=== PATIENT | female | born 1960 | race Asian ===

== ENCOUNTER → 2022-06-12 11:11 | Outpatient (CLI) | payer OTHER, SELFPAY ==
[2022-06-12 12:48] LABS: COVID19 -Nasal RAPID Negative (Negative)
== END ==
PROVIDERS: Visit Provider Surgery
DX: Z01.812 Encounter for preprocedural laboratory examination (principal); Z20.822 Contact with and (suspected) exposure to COVID-19
CPT/HCPCS: 87635; C9803

== ENCOUNTER 2022-06-13 13:29 | Day surgery (SDC) | payer OTHER, SELFPAY ==
--- NOTE | 2022-06-13 | PATH_ITS ---
[facility] Accession Number: [id number] . 01 Material submitted: . gastrointestinal site - STOMACH BIOPSIES . 01 Diagnosis: Stomach, Biopsies: Gastric antral mucosa with mild chronic inflammation. Negative for Helicobacter organisms by immunohistochemistry. Negative for intestinal metaplasia. Negative for dysplasia or malignancy. MRV 06/18/2022 1706 Local . 01 Electronically signed: . Jaswinder Yu MD, PhD, Pathologist NPI- [id number] . 01 Gross description: . STOMACH BIOPSIES: Received in formalin are 2 fragment(s) of stubbs, soft tissue measuring 0.5 x 0.2 x 0.1 cm to 0.3 x 0.1 x 0.1 cm submitted entirely in 1 cassette(s) /CPE 06/14/2022 0725 Local . 01 Microscopic: . An immunohistochemical stain was performed to evaluate for Helicobacter organisms and is negative. The control stain showed appropriate reactivity. . * This test was developed and its performance characteristics determined by [facility]. It has not been cleared or approved by the U.S. Food and Drug Administration. The FDA has determined that such clearance or approval is not necessary. This test is used for clinical purposes. It should not be regarded as investigational or for research. . 01 Pathologist provided ICD-10: K29.70 . 01 CPT . 672398, W01156 Specimen Comment: A courtesy copy of this report has been sent to [phone] Performed at: 01 [facility] [address] [place] [address], [place], [place] [id number] MD Doroteo Hyman MD Phone: [phone]
[2022-06-13 14:11] VITALS: BP 149/88; PULSE 79; RESP 16; TEMP 36.2; O2SAT 100; BMI 26.5
--- NOTE | 2022-06-13 14:21 | PM.HP.1 ---
History of Present Illness History of Present Illness Chief complaint: EGD/Colonoscopy Narrative: Dysphagia with history of large hiatal hernia. Need for colorectal cancer screening Meds Home Medications and Allergies Home Medications Medication Instructions Recorded Confirmed Type acetaminophen 500 mg tablet ##0 07/08/16 History (Tylenol Extra Strength) Allergies Allergy/AdvReac Type Severity Reaction Status Date / Time No Known Allergies Allergy Uncoded 10/23/17 12:40 Exam Narrative Exam Narrative: Oropharynx free of lesions Chest clear to auscultation percussion Cardiac exam reveals no S3 or murmur Assessment & Plan Assessment & Plan narrative: Dysphagia and need for colorectal cancer screening. EGD and colonoscopy to be performed. Risks benefits alternatives have been explained. Time Spent With Patient Critical Care time: I spent a total of [] minutes of critical care time on this patient's care today; this time is exclusive of procedural time.
--- NOTE | 2022-06-13 14:22 | P.OP.EGD&C_ITS ---
Operative Date/Time/Diagnoses Date of procedure: 06/13/22 Pre-op diagnosis: See indication and findings Procedure & Clinicians Study performed: EGD and colonoscopy Indications: Dysphagia and need for colorectal cancer screening Surgeon: John Whiteside Procedure Notes Procedure in detail: After informed consent was obtained the patient was placed in left lateral decubitus position. The video upper scope was placed into the oropharynx and with the patient's help swallowed into the esophagus. The esophagus stomach and duodenum were carefully examined. On withdrawal, retroflexed view the GE junction was performed. The scope was removed. The patient tolerated procedure well. The colonoscope was then substituted the patient turned. The scope was introduced to the rectum and easily passed cecum. Preparation was good. On slow withdrawal mucosa was carefully examined. The scope was removed. The patient tolerated procedure well. Blood loss none Complications none Sedation mac Findings EGD 1. Squamocolumnar junction normal 36 cm. Retroflexed view shows that there is a noninflammatory tightness in this area possibly representing a Schatzki's ring. On removal of the scope a guidewire was left behind and a 51 K[address] Savary dilator was passed without difficulty. 2. Large unilateral paraesophageal hernia. The neck is only 2-3 cm but the hernia itself is much larger possibly 8 cm. No Boni lesions were seen 3. Intense moderately severe nonerosive erythematous stripes in the antrum. I hematin flexor seen. Biopsies taken to rule out Helicobacter 4. Normal pylorus duodenal bulb and sweep Colonoscopy 1. Scattered diverticulosis throughout the entire colon including the right col on 2. Otherwise negative colonoscopy to cecum We will merely await biopsies on her stomach but will also need follow-up in a month to see if she had any positive effect of dilation at all. Will also need to discuss medication use and possible surgical intervention. She will need follow-up colonoscopy in 10 years.
[2022-06-13] MEDS: SODIUM CHLORIDE 0.9% 1,000 ML 84 ML IV (14:25)
[2022-06-13 15:16] VITALS: BP 117/67; PULSE 73; RESP 22; TEMP 36.7; O2SAT 96
[2022-06-13 15:21] VITALS: BP 127/74; PULSE 75; RESP 22; O2SAT 97
[2022-06-13 15:26] VITALS: BP 136/77; PULSE 72; RESP 21; O2SAT 97
[2022-06-13 15:31] VITALS: BP 124/85; PULSE 86; RESP 20; O2SAT 98
== END 2022-06-13 15:53 | disposition home or self-care (01) ==
PROVIDERS: PCP Family Medicine; Referring Provider Internal Medicine Gastroenterology; Visit Provider Internal Medicine Gastroenterology
PROC: 0DJ08ZZ Inspection of Upper Intestinal Tract, Via Natural or Artificial Opening Endoscopic (ICD-10-PCS; CPT 43235; principal; 2022-06-13 15:00)
PROC: 0DJD8ZZ Inspection of Lower Intestinal Tract, Via Natural or Artificial Opening Endoscopic (ICD-10-PCS; CPT 45378; 2022-06-13 15:00)
DX: R13.10 Dysphagia, unspecified (principal); Z12.11 Encounter for screening for malignant neoplasm of colon; K22.2 Esophageal obstruction; K44.9 Diaphragmatic hernia without obstruction or gangrene; K57.30 Diverticulosis of large intestine without perforation or abscess without bleeding; K29.50 Unspecified chronic gastritis without bleeding
CPT/HCPCS: 43248; 43239; 45378; J2704; J3010

== ENCOUNTER → 2022-08-24 13:28 | Outpatient (CLI) | payer OTHER, SELFPAY ==
--- NOTE | 2022-08-24 | DI.RAD.S_ITS ---
PROCEDURE: FL BARIUM SWALLOW INDICATIONS: Dysphagia, unspecified COMPARISON: [facility], MR, MR HANDS WITH/WITHOUT CONTRAST BILATERAL FOR RA, 03/13/2022, 14:40. FINDINGS: Function: There is normal esophageal peristalsis. No elicited gastroesophageal reflux. There is normal transit of a calibrated barium tablet through the esophagus into the stomach. Morphology: Air-contrast images demonstrate normal mucosal morphology. Single contrast views show no esophageal strictures, extrinsic mass effects, or diverticula. There is asymmetric contrast pooling in the right pisiform sinus. A large paraesophageal hiatal hernia is present. Limited images of the stomach demonstrate normal appearance. IMPRESSION: 1. Large paraesophageal hiatal hernia. 2. Asymmetric pooling of oral contrast in the right piriform sinus. The finding is of uncertain etiology. Recommend ENT consultation and direct visualization. Dictated by: Selma Moran M.D. on 08/24/2022 at 15:32 Approved by: Selma Moran M.D. on 08/24/2022 at 15:39
== END ==
PROVIDERS: PCP Family Medicine; Referring Provider Internal Medicine Gastroenterology; Visit Provider Internal Medicine Gastroenterology
DX: R13.10 Dysphagia, unspecified (principal); K44.9 Diaphragmatic hernia without obstruction or gangrene
CPT/HCPCS: 74220

== ENCOUNTER 2023-04-09 21:08 | Emergency (ER) | payer OTHER, SELFPAY ==
[2023-04-09 21:16] VITALS: BP 179/84; PULSE 78; RESP 18; TEMP 36.3; O2SAT 97; BMI 23.0
--- NOTE | 2023-04-09 21:26 | ED.GENADULT ---
HPI - General Adult General Chief complaint: Abdominal Pain Stated complaint: thinks kidney stone Time Seen by Provider: 04/09/23 21:09 Source: patient Mode of arrival: Ambulatory History of Present Illness HPI narrative: 63-year-old female daily smoker without significant chronic medical history presents with her brother and a chief complaint of sudden onset right flank pain with radiation into her right groin over the course of the day. She denies any trauma or injury. She states there is no obvious provocation, palliation. She does have some urinary complaints such as frequency and urgency but denies any dysuria or hematuria. She is had no fever or chills. She is had nausea and some dry heaves but no actual vomiting. She denies any change in her bowel habits. She states she is concerned about the potential of a kidney stone though she has never had 1. Related Data Home Medications Medication Instructions Recorded Confirmed acetaminophen 500 mg tablet ##0 07/08/16 (Tylenol Extra Strength) meloxicam 06/13/22 Previous Rx's Medication Instructions Recorded hydrocodone 5 mg-acetaminophen 325 1 tab PO Q4-6H PRN pain #10 tabs 04/09/23 mg tablet ketorolac 10 mg tablet 10 mg PO Q6H PRN pain #14 tabs 04/09/23 ondansetron 4 mg disintegrating 4 mg PO TID-QID PRN nausea and 04/09/23 tablet vomiting #10 tabs Allergies Allergy/AdvReac Type Severity Reaction Status Date / Time No Known Allergies Allergy Uncoded 06/13/22 14:22 Review of Systems Review of Systems Narrative: GENERAL: See HPI HEENT: Denies sinus pain, ear pain, sore throat, difficulty swallowing, dizziness. RESPIRATORY: Denies dyspnea, cough, wheezing, hemoptysis, sputum. CARDIOVASCULAR: Denies chest pain, palpitations, orthopnea, edema, GASTROINTESTINAL: See HPI : See HPI MUSCULOSKELETAL: denies weakness, joint pain, or bony pain SKIN: Denies rash, skin lesions, or other NEUROLOGIC: Denies weakness, headache, numbness, change in speech, confusion, seizures, incoordination. PSYCHIATRIC: No concerning psychosocial issues. 12 point review of systems is negative except for those stated above Patient History Social History household members: spouse Smoking Status: Current every day smoker alcohol intake: never Smoking Status: Current every day smoker Substance Use Type: does not use Exam Narrative Exam Narrative: GENERAL: [63] year old patient appears stated age. Well-developed patient, in mild distress. Appears uncomfortable, rubbing her right flank HEAD: Atraumatic. Normocephalic. EYES: Pupils equal round and reactive. Extraocular motions intact. No scleral icterus. No injection or drainage. ENT: Nose without bleeding, purulent drainage. Throat without erythema, tonsillar hypertrophy or exudate. Airway patent. NECK: Trachea midline. Non tender CARDIOVASCULAR: Regular rate and rhythm without murmurs, gallops, or rubs. RESPIRATORY: Clear to auscultation. Breath sounds equal bilaterally. No wheezes, rales, or rhonchi. GASTROINTESTINAL: Abdomen soft, non-tender, nondistended. EXTREMITIES: No edema or joint tenderness. BACK: Nontender without deformity or crepitance. No flank tenderness. NEURO: AOx3. SKIN: No rash or erythema of visible areas Initial Vital Signs Initial Vital Signs: Vital Signs Temperature 97.4 F L 04/09/23 21:16 Pulse Rate 78 04/09/23 21:16 Respiratory Rate 18 04/09/23 21:16 Blood Pressure 179/84 H 04/09/23 21:16 Pulse Oximetry 97 04/09/23 21:16 Oxygen Delivery Method Room Air 04/09/23 21:16 Course Orders Ordered: ED Orders 04/09/23 21:20 Urine Microscopic Stat 04/09/23 21:27 CT kidney ureter bladder (KUB) Stat 04/09/23 21:35 Complete Blood Count AUTO DIFF Stat Comprehensive Metabolic Panel Stat Discontinued Medications Hydrocodone Bitart/Acetaminophen (Hydrocodone/Acet 5/325 Prepack) 1 bottle MISC SEEINSTR ONE Stop: 04/09/23 23:35 Sodium Chloride (Normal Saline 0.9%) 1,000 mls @ 1,000 mls/hr IV BOLUS ONE Stop: 04/09/23 22:26 Last Infusion: 04/09/23 23:00 Dose: 0 mls/hr Documented By: Admin: 04/09/23 21:46 Dose: 1,000 mls/hr Documented By: BENOIT Ketorolac Tromethamine (Ketorolac 30 Mg/Ml Vial) 15 mg IV NOW ONE Stop: 09/26/23 21:28 Last Admin: 04/09/23 21:46 Dose: 15 mg Documented By: BENOIT Ondansetron HCl (Ondansetron 4 Mg/2 Ml Inj) 4 mg IV NOW ONE Stop: 04/09/23 21:28 Last Admin: 04/09/23 23:33 Dose: Not Given Documented By: BENOIT Ondansetron HCl (Ondansetron 4 Mg Odt Prepack) 1 bottle MISC SEEINSTR ONE Stop: 04/09/23 23:35 Vital Signs Vital signs: Vital Signs - 8 hr 04/09/23 21:16 Temperature 97.4 F L Pulse Rate 78 Respiratory Rate 18 Blood Pressure 179/84 H Pulse Oximetry 97 Oxygen Delivery Method Room Air Medical Decision Making Lab Data 04/09/23 21:35 04/09/23 21:35 Labs: Lab Results 04/09/23 04/09/23 04/09/23 Range/Units 21:20 21:35 21:35 WBC 10.6 (4.5-11.0) X10^3/uL RBC 4.47 (4.0-5.2) X10^6/uL Hgb 12.1 (12.0-16.0) g/dL Hct 36.4 (36-46) % MCV 81.6 (80-100) fL MCH 27.0 (26-34) PG MCHC 33.1 (30-36) % RDW 18.1 H (11.6-14.8) % Plt Count 241 (150-400) X10^3/uL Neut % (Auto) 81.6 H (50-75) % Lymph % (Auto) 10.8 L (25-40) % Rooks % (Auto) 5.0 (3-14) % Eos % (Auto) 1.4 L (2-4) % Baso % (Auto) 1.2 (0-2) % Neut # (Auto) 8700 H (2771-8294) /uL Lymph # (Auto) 1100 (4419-9111) /uL Rooks # (Auto) 500 (0-900) /uL Eos # (Auto) 100 (0-450) /uL Baso # (Auto) 100 (0-100) /uL Sodium 141 (137-145) mmol/L Potassium 3.6 (3.4-5.1) mmol/L Chloride 107 (98-107) mmol/L Carbon Dioxide 25 (22-32) mmol/L BUN 13 (7-17) mg/dL Creatinine 0.78 (0.52-1.04) mg/dL Estimated GFR > 60 (>60) mL/min BUN/Creatinine Ratio 16.7 (6-22) Glucose 100 (80-110) mg/dL Calcium 8.9 (8.4-10.2) mg/dL Total Bilirubin 0.2 (0.2-1.3) mg/dL AST 23 (14-36) IU/L ALT 18 (<35) IU/L Alkaline Phosphatase 95 (38-126) U/L Total Protein 7.5 (6.3-8.2) g/dL Albumin 4.2 (3.5-5.0) g/dL Globulin 3.3 (1.7-4.1) g/dL Albumin/Globulin Ratio 1.3 (1.0-2.8) Urine RBC >100/hpf H (0-5/HPF) Urine WBC 0-1/hpf (0-5/HPF) Ur Squamous Epith Cells 1-5 /hpf (0-5/HPF) Urine Bacteria Occasional (0-1) (None) Ur Culture Indicated? Cult not indicated Urine Dip Bedside Urine Glucose Negative Bedside Urine Bilirubin - Negative Bedside Urine Ketone - Negative Urine Specific [place] 1.020 Bedside Urine Occult Blood +++ Bedside Urine pH 5.5 Bedside Urine Protein - Negative Bedside Urine Urobilinogen - Negative Bedside Urine Nitrite - Negative Bedside Urine Leukocytes - Negative Esterase Point of care testing: Urine Dip Bedside Urine Glucose Negative Bedside Urine Bilirubin - Negative Bedside Urine Ketone - Negative Urine Specific [place] 1.020 Bedside Urine Occult Blood +++ Bedside Urine pH 5.5 Bedside Urine Protein - Negative Bedside Urine Urobilinogen - Negative Bedside Urine Nitrite - Negative Bedside Urine Leukocytes - Negative Esterase [facility] Narrative Medical decision making narrative: CC: 63-year-old female with right flank pain Complicating co-morbidities: None known Data collected from: Patient Medical records reviewed: Prior notes reviewed in our EMR Differential considered, but not limited to: UTI versus pyelonephritis versus kidney stone versus bowel obstruction versus other Exam documented above, pertinent findings include: Heart rate regular, lungs clear, abdomen soft, no obvious CVA tenderness Lab Test results independently reviewed as above. Pertinent findings: Independently reviewed EKG as above Imaging studies independently reviewed: CT demonstrates stone at the right UVJ with [id number] hydro Treatments: fluids, toradol Re-evaluations: Pain well controlled Discussion: Patient with sudden onset right flank pain with radiation to her groin. No other urinary complaints, no signs of sepsis, reassuring labs without evidence of infection or renal involvement. Pain controlled, patient tolerating orals and appropriate for discharge. Disposition: see below, along with detailed discharge instructions that have been reviewed with patient as well as indications for ED re-evaluation and additional outpatient follow up Discharge Plan Departure Patient Disposition: Home Clinical Impression: Calculus of kidney Instructions: DI for Kidney Stones Activity Restrictions/Additional Instructions: *You have been diagnosed with [right-sided kidney stone] *What to do: *Please continue to take your regular medications as directed. [ x] New medication prescriptions sent to your pharmacy: [ [facility] in [place]] [ ] New medication written as a paper prescription [ ] No new medications given *Please follow up with your primary care provider in 2-3 days, call for an appointment. Let them know you were seen in the Emergency Department and that we ask that you be seen in follow up. We will electronically transmit a record of today's note if your PCP is in our system *If you do not have a primary care provider please contact the [facility] Resource line at [phone]. They will ask some questions about your medical history and help get you set up with a doctor in the community. *Return to Emergency Department if you should have any new, worsening or concerning symptoms, such as [fever greater than 101 F, shaking chills, worsening pain, persistent vomiting or other bothersome symptoms] Prescriptions: New hydrocodone-acetaminophen 5-325 mg tablet 1 tab PO Q4-6H PRN (Reason: pain) Qty: 10 0RF ketorolac 10 mg tablet 10 mg PO Q6H PRN (Reason: pain) Qty: 14 0RF ondansetron 4 mg tablet,disintegrating 4 mg PO TID-QID PRN (Reason: nausea and vomiting) Qty: 10 0RF No Action acetaminophen [Tylenol Extra Strength] 500 MG tablet Qty: 0 meloxicam Referrals: Pretty Bass MD [Primary Care Provider] - Stand Alone Forms: Patient Portal/API
--- NOTE | 2023-04-09 21:27 | DI.CT.S_ITS ---
PROCEDURE: CT KIDNEY URETER BLADDER (KUB) INDICATIONS: R flank pain TECHNIQUE: Axial sections were acquired from the lung bases to the pubic symphysis. Coronal and sagittal reformats were performed. For radiation dose reduction, the following was used: automated exposure control, adjustment of mA and/or kV according to patient size. COMPARISON: None. FINDINGS: Image quality: Excellent. Lung bases: There is minimal atelectasis. Heart: Heart is normal in size. There is a small hiatal hernia. URINARY: Right Kidney and Ureter: There is a punctate obstructing stone within the distal right ureter just proximal to the ureterovesicular junction with mild right hydronephrosis. There is associated mild perinephric and periureteral fat stranding. Left Kidney and Ureter: No stones or hydronephrosis. No hydroureter. Bladder: Normal wall thickness. No stones. ABDOMEN: Liver: Noncontrast evaluation of the liver demonstrates no discrete mass. Gallbladder: Within normal limits without calcified gallstones. Biliary ducts: No biliary ductal dilatation. Pancreas: Unremarkable. Spleen: Normal in size. Adrenal Glands: There is a left adrenal nodule measuring 1.6 cm with attenuation values compatible with a lipid rich adenoma. Stomach and Bowel: Stomach, small bowel loops, and colon are normal in caliber and wall thickness. The appendix is normal. Peritoneum: No abnormal intraperitoneal fluid. No free air. Ventral Wall: No hernia. Abdominal Nodes: No retroperitoneal or mesenteric adenopathy by size criteria. Vessels: Aorta and inferior vena cava are normal in size. PELVIS: Pelvic Organs: The uterus is surgically absent. Pelvic Nodes: No enlarged lymph nodes. Miscellaneous: No inguinal hernias identified. Bones: Visualized osseous structures demonstrate no suspicious focal lesions. IMPRESSION: 1. Punctate obstructing stone within the distal right ureter with mild right hydronephrosis. Dictated by: Doroteo Crane M.D. on 04/09/2023 at 22:52 Approved by: Doroteo Crane M.D. on 04/09/2023 at 22:55
[2023-04-09 21:46] LABS: Add Manual Diff / Slide Review NO; Basophils Absolute Auto 100 /uL (0-100); Basophils Percent Auto 1.2 % (0-2); Eosinophils Absolute Auto 100 /uL (0-450); Eosinophils Percent Auto 1.4 % (2-4); Hematocrit 36.4 % (36-46); Hemoglobin 12.1 g/dL (12.0-16.0); Lymphocytes Absolute Auto 1100 /uL (1100-4500); Lymphocytes Percent Auto 10.8 % (25-40); Mean Corpuscular HGB Conc 33.1 % (30-36); Mean Corpuscular Volume 81.6 fL (80-100); Monocytes Absolute Auto 500 /uL (0-900); Neutrophils Absolute Auto 8700 /uL (1500-7000); Neutrophils Percent Auto 81.6 % (50-75); Platelet Count 241 X10^3/uL (150-400); Red Blood Cell Count 4.47 X10^6/uL (4.0-5.2); Red Cell Distribution Width 18.1 % (11.6-14.8); White Blood Cell Count 10.6 X10^3/uL (4.5-11.0)
[2023-04-09] MEDS: KETOROLAC 30 MG/ML VIAL 15 MG IV (21:46)
[2023-04-09] MEDS: SODIUM CHLORIDE 0.9% 1,000 ML 1000 ML IV (21:46)
[2023-04-09 21:58] LABS: Alanine Aminotransferase 18 IU/L (<35); Albumin 4.2 g/dL (3.5-5.0); Albumin Globulin Ratio 1.3 (1.0-2.8); Alkaline Phosphatase 95 U/L (38-126); Aspartate Aminotransferase 23 IU/L (14-36); BUN Creatinine Ratio 16.7 (6-22); Bilirubin Total 0.2 mg/dL (0.2-1.3); Blood Urea Nitrogen 13 mg/dL (7-17); Calcium 8.9 mg/dL (8.4-10.2); Carbon Dioxide 25 mmol/L (22-32); Chloride 107 mmol/L (98-107); Estimated Glomerular Filt Rate > 60 mL/min (>60); Globulin 3.3 g/dL (1.7-4.1); Glucose 100 mg/dL (80-110); HEMOLYSIS < 15 (0-50); Potassium 3.6 mmol/L (3.4-5.1); Sodium 141 mmol/L (137-145); Total Protein 7.5 g/dL (6.3-8.2)
[2023-04-09 22:12] LABS: RBC Urine >100/HPF (0-5/HPF)
[2023-04-09 22:13] LABS: Bacteria Urine Occasional (0-1); Culture Indicated Urine Cult Not Indicated; Squamous Epithelial Cell Urine 1-5 /HPF (0-5/HPF); WBC Urine 0-1/HPF (0-5/HPF)
[2023-04-09] MEDS: HYDROCODONE/ACET 5/325 PREPACK 1 BOTTLE MISC (23:52)
[2023-04-09] MEDS: ONDANSETRON 4 MG ODT PREPACK 1 BOTTLE MISC (23:53)
[2023-04-10 00:05] VITALS: BP 156/73; PULSE 69; RESP 20; O2SAT 99
== END 2023-04-10 00:06 | disposition home or self-care (01) ==
PROVIDERS: Emergency Provider Emergency Medicine; PCP Family Medicine
DX: N20.0 Calculus of kidney (principal)
CPT/HCPCS: 74176; 80053; 81003; 81015; 85025; 96361; 96374; 99283; 99284; J1885

== ENCOUNTER 2023-04-10 07:07 | Emergency (ER) | payer OTHER, SELFPAY ==
[2023-04-10 07:10] VITALS: BP 131/71; PULSE 65; O2SAT 94
--- NOTE | 2023-04-10 07:10 | ED.ABDPAIN ---
HPI - Abdominal Pain General Chief Complaint: Back Pain/Injury Stated Complaint: right side pain Time Seen by Provider: 04/10/23 07:09 History of Present Illness HPI narrative: Patient brought in by ambulance from home for complains of right flank pain. Patient discharged here about 7 hours ago for diagnosis of right distal ureter stone. Pain worsened prior to arrival. Home Worden medication did not work. Patient was given 100 mcg of fentanyl by EMS. Feeling much better. Also received Zofran as well. NPO since last night. No prior history of kidney stone. Patient states feeling much better after EMS treatment of pain medication. Patient was sent home with Worden because no pharmacy was opened. Was not able to get any other medications filled. Related Data Home Medications Medication Instructions Recorded Confirmed acetaminophen 500 mg tablet ##0 07/08/16 (Tylenol Extra Strength) meloxicam 06/13/22 Previous Rx's Medication Instructions Recorded hydrocodone 5 mg-acetaminophen 325 1 tab PO Q4-6H PRN pain #10 tabs 04/09/23 mg tablet ketorolac 10 mg tablet 10 mg PO Q6H PRN pain #14 tabs 04/09/23 ondansetron 4 mg disintegrating 4 mg PO TID-QID PRN nausea and 04/09/23 tablet vomiting #10 tabs tamsulosin 0.4 mg capsule (Flomax) 0.4 mg PO DAILY #7 caps 04/10/23 Allergies Allergy/AdvReac Type Severity Reaction Status Date / Time No Known Allergies Allergy Uncoded 04/10/23 07:15 Patient History Social History household members: spouse Smoking Status: Current every day smoker alcohol intake: never Smoking Status: Current every day smoker Substance Use Type: does not use Exam Initial Vital Signs Initial Vital Signs: Vital Signs Pulse Rate 65 04/10/23 07:10 Blood Pressure 131/71 04/10/23 07:10 Pulse Oximetry 94 04/10/23 07:10 Course Orders Ordered: Discontinued Medications Ketorolac Tromethamine (Ketorolac 30 Mg/Ml Vial) 15 mg IV NOW ONE Stop: 04/10/23 08:35 Last Admin: 04/10/23 08:40 Dose: 15 mg Documented By: SIMONA Tamsulosin HCl (Tamsulosin 0.4 Mg Capsule) 0.4 mg PO NOW ONE Stop: 04/10/23 07:43 Last Admin: 04/10/23 08:05 Dose: 0.4 mg Documented By: SIMONA Vital Signs Vital signs: Vital Signs - 8 hr 04/10/23 07:12 04/10/23 07:10 04/10/23 07:10 Temperature 98.7 F Pulse Rate 64 65 Respiratory Rate 16 Blood Pressure 131/71 131/71 Pulse Oximetry 97 94 Oxygen Delivery Method Room Air 04/10/23 07:30 Temperature Pulse Rate 58 L Respiratory Rate Blood Pressure Pulse Oximetry 96 Oxygen Delivery Method MDM - Abdominal Pain Lab Data 04/10/23 07:16 04/10/23 07:16 Labs: Lab Results 04/10/23 Range/Units 07:16 WBC 9.0 (4.5-11.0) X10^3/uL RBC 4.22 (4.0-5.2) X10^6/uL Hgb 11.3 L (12.0-16.0) g/dL Hct 34.3 L (36-46) % MCV 81.3 (80-100) fL MCH 26.8 (26-34) PG MCHC 32.9 (30-36) % RDW 17.6 H (11.6-14.8) % Plt Count 209 (150-400) X10^3/uL Neut % (Auto) 85.6 H (50-75) % Lymph % (Auto) 8.0 L (25-40) % Vigo % (Auto) 5.1 (3-14) % Eos % (Auto) 0.9 L (2-4) % Baso % (Auto) 0.4 (0-2) % Neut # (Auto) 7700 H (9125-5331) /uL Lymph # (Auto) 700 L (1944-8618) /uL Vigo # (Auto) 500 (0-900) /uL Eos # (Auto) 100 (0-450) /uL Baso # (Auto) 0 (0-100) /uL Sodium 139 (137-145) mmol/L Potassium 3.7 (3.4-5.1) mmol/L Chloride 109 H (98-107) mmol/L Carbon Dioxide 23 (22-32) mmol/L BUN 13 (7-17) mg/dL Creatinine 0.82 (0.52-1.04) mg/dL Estimated GFR > 60 (>60) mL/min BUN/Creatinine Ratio 15.9 (6-22) Glucose 109 (80-110) mg/dL Calcium 8.8 (8.4-10.2) mg/dL Total Bilirubin 0.4 (0.2-1.3) mg/dL AST 22 (14-36) IU/L ALT 18 (<35) IU/L Alkaline Phosphatase 82 (38-126) U/L Total Protein 6.7 (6.3-8.2) g/dL Albumin 3.8 (3.5-5.0) g/dL Globulin 2.9 (1.7-4.1) g/dL Albumin/Globulin Ratio 1.3 (1.0-2.8) Imaging Data X-ray KUB: Radiologist's Impression: [address] [address] XRay Report Signed Patient: Vanessa Condon MR#: [id number] : 1960 Acct:[id number] Age/Sex: 63 / F Date of Service: 04/10/23 Loc: ED Accession Number: [id number] ?? Procedure: XR KUB Ordering Provider: Mando Dick MD PROCEDURE:? XR KUB ? INDICATIONS:? Right flank pain/kidney stone ? TECHNIQUE:? One view of the abdomen acquired.? ? COMPARISON:? [facility], CT, CT KIDNEY URETER BLADDER (KUB), 04/09/2023, 21:34. ? FINDINGS:? ? Surgical changes and devices:? None.? ? Bowel:? Bowel gas pattern is normal.? ? Soft tissues:? There is a tiny right pelvic calcification which may potentially represent the tiny obstructing right distal ureteral stone.? Visualized solid organ contours appear normal in size.? ? Bones:? No suspicious bony lesions.? ? IMPRESSION:? Question visualization of a tiny obstructing distal right ureteral stone on today's supine KUB. ? ? Dictated by: Lázaro Scanlon M.D. on 04/10/2023 at 8:22 ? ? Approved by: Lázaro Scanlon M.D. on 04/10/2023 at 8:23 ? MDM Narrative Medical decision making narrative: Patient brought in by ambulance from home for complains of right flank pain. Patient discharged here about 7 hours ago for diagnosis of right distal ureter stone. Pain worsened prior to arrival. Home Worden medication did not work. Patient was given 100 mcg of fentanyl by EMS. Feeling much better. Also received Zofran as well. NPO since last night. No prior history of kidney stone. Patient states feeling much better after EMS treatment of pain medication. Patient was sent home with Worden because no pharmacy was opened. Was not able to get any other medications filled. After history and exam CBC CMP Toradol x-ray KUB [facility] CC: Right flank pain Complicating co-morbidities: Kidney stone Data collected from: Patient and EMS Medical records reviewed: ER visit from last night Differential considered: Includes but not limited to kidney stone Exam documented above, pertinent findings include: Nontender abdomen Lab Test results independently reviewed as above. Pertinent findings: WBC 9.0 BUN 13 creatinine 0.82 GFR greater than 60 Imaging studies independently reviewed: X-ray KUB question visualization of tiny obstructing distal right ureteral stone Treatments: Toradol Flomax Re-evaluations: 9:07 a.m.. Patient is pain-free. Reviewed results with her. She is calling for a ride. Nontoxic at discharge. Return precautions reviewed with her. Referral for Urology provided. She does not need a work note. Flomax prescription provided. Discussion: Appropriate for discharge home. Not toxic at discharge. Patient likely had flare-up pain due to kidney stone moving. Pain is controlled at this time. Calling for a ride. Referral for Urology provided. Flomax prescription added to patient's regimen. Patient unable to get her ketorolac which is very effective for kidney stone pain control. She is able to get it today. Return precautions reviewed with her. She desires discharge. Not toxic at discharge Diagnosis: Ureteral stone Discharge Plan Departure Patient Disposition: Home Clinical Impression: Calculus, ureteral Instructions: DI for Kidney Stones Activity Restrictions/Additional Instructions: No driving or operating machinery today or when taking prescribed pain medication. Please do use the to ketorolac pill medication till for pain. Call provided urology office today to make appointment for follow up within a week. Please do try to filter urine to bring kidney stone to the office. Return if worse if any questions or concerns. Keep well hydrated. Laboratory studies and x-ray today are reassuring. You should be able to pass this kidney stone Prescriptions: New tamsulosin [Flomax] 0.4 mg capsule 0.4 mg PO DAILY Qty: 7 0RF No Action acetaminophen [Tylenol Extra Strength] 500 MG tablet Qty: 0 hydrocodone-acetaminophen 5-325 mg tablet 1 tab PO Q4-6H PRN (Reason: pain) Qty: 10 0RF ketorolac 10 mg tablet 10 mg PO Q6H PRN (Reason: pain) Qty: 14 0RF ondansetron 4 mg tablet,disintegrating 4 mg PO TID-QID PRN (Reason: nausea and vomiting) Qty: 10 0RF meloxicam Referrals: Mando Dominguez MD [Physician] - Pretty Bass MD [Primary Care Provider] - Stand Alone Forms: Patient Portal/API
[2023-04-10 07:12] VITALS: BP 131/71; PULSE 64; RESP 16; TEMP 37.1; O2SAT 97; BMI 23.0
[2023-04-10 07:24] LABS: Add Manual Diff / Slide Review NO; Basophils Absolute Auto 0 /uL (0-100); Basophils Percent Auto 0.4 % (0-2); Eosinophils Absolute Auto 100 /uL (0-450); Eosinophils Percent Auto 0.9 % (2-4); Hematocrit 34.3 % (36-46); Hemoglobin 11.3 g/dL (12.0-16.0); Lymphocytes Absolute Auto 700 /uL (1100-4500); Mean Corpuscular HGB Conc 32.9 % (30-36); Mean Corpuscular Hemoglobin 26.8 PG (26-34); Mean Corpuscular Volume 81.3 fL (80-100); Monocytes Absolute Auto 500 /uL (0-900); Monocytes Percent Auto 5.1 % (3-14); Neutrophils Absolute Auto 7700 /uL (1500-7000); Neutrophils Percent Auto 85.6 % (50-75); Platelet Count 209 X10^3/uL (150-400); Red Blood Cell Count 4.22 X10^6/uL (4.0-5.2); Red Cell Distribution Width 17.6 % (11.6-14.8)
--- NOTE | 2023-04-10 07:24 | PC.NURSE ---
Pt was seen in ED earlier today and dx with kidney stone and discharged with a prescription for pain medication. pt tried to drink a soda and began to feel pain and pressure under her diaphragm. Pt took a pain pill and did not experience results. Called [facility] ems and came back to ED. EMS gave 100mcg of Fentanyl and 4 of Zofran in route to ED. Pt is now resting comfortably and states that her pain is managable.
[2023-04-10 07:30] VITALS: PULSE 58; O2SAT 96
[2023-04-10 07:36] LABS: Alanine Aminotransferase 18 IU/L (<35); Albumin 3.8 g/dL (3.5-5.0); Albumin Globulin Ratio 1.3 (1.0-2.8); Alkaline Phosphatase 82 U/L (38-126); Aspartate Aminotransferase 22 IU/L (14-36); BUN Creatinine Ratio 15.9 (6-22); Bilirubin Total 0.4 mg/dL (0.2-1.3); Blood Urea Nitrogen 13 mg/dL (7-17); Calcium 8.8 mg/dL (8.4-10.2); Carbon Dioxide 23 mmol/L (22-32); Chloride 109 mmol/L (98-107); Estimated Glomerular Filt Rate > 60 mL/min (>60); Globulin 2.9 g/dL (1.7-4.1); Glucose 109 mg/dL (80-110); HEMOLYSIS < 15 (0-50); Potassium 3.7 mmol/L (3.4-5.1); Sodium 139 mmol/L (137-145); Total Protein 6.7 g/dL (6.3-8.2)
--- NOTE | 2023-04-10 07:42 | DI.RAD.S_ITS ---
PROCEDURE: XR KUB INDICATIONS: Right flank pain/kidney stone TECHNIQUE: One view of the abdomen acquired. COMPARISON: [facility], CT, CT KIDNEY URETER BLADDER (KUB), 04/09/2023, 21:34. FINDINGS: Surgical changes and devices: None. Bowel: Bowel gas pattern is normal. Soft tissues: There is a tiny right pelvic calcification which may potentially represent the tiny obstructing right distal ureteral stone. Visualized solid organ contours appear normal in size. Bones: No suspicious bony lesions. IMPRESSION: Question visualization of a tiny obstructing distal right ureteral stone on today's supine KUB. Dictated by: Lázaro Scanlon M.D. on 04/10/2023 at 8:22 Approved by: Lázaro Scanlon M.D. on 04/10/2023 at 8:23
[2023-04-10 07:45] VITALS: PULSE 56; O2SAT 96
[2023-04-10] MEDS: TAMSULOSIN 0.4 MG CAPSULE PO (08:05)
[2023-04-10] MEDS: KETOROLAC 30 MG/ML VIAL 15 MG IV (08:40)
== END 2023-04-10 09:10 | disposition home or self-care (01) ==
PROVIDERS: Emergency Provider Emergency Medicine; PCP Family Medicine
DX: N20.1 Calculus of ureter (principal)
CPT/HCPCS: 36415; 74018; 80053; 85025; 96374; 99284; J1885

== ENCOUNTER 2023-04-14 20:33 | Emergency (ER) | payer OTHER, SELFPAY ==
[2023-04-14 20:38] VITALS: BP 174/85; PULSE 89; RESP 16; TEMP 36.9; O2SAT 99; BMI 23.0
[2023-04-14] MEDS: METOCLOPRAMIDE 10 MG/2 ML INJ IV (21:30)
[2023-04-14] MEDS: diphenhydrAMINE 50 MG/ML VIAL 25 MG IV (21:30)
[2023-04-14] MEDS: KETOROLAC 30 MG/ML VIAL 15 MG IV (21:30)
[2023-04-14] MEDS: SODIUM CHLORIDE 0.9% 1,000 ML 1000 ML IV (21:31)
[2023-04-14 22:06] VITALS: BP 163/73; PULSE 65; RESP 18; O2SAT 98
--- NOTE | 2023-04-14 22:58 | ED.HA ---
HPI - Headache General Chief Complaint: Headache Stated Complaint: Migraine X 4 days Time Seen by Provider: 04/14/23 22:03 Mode of arrival: Ambulatory History of Present Illness HPI Narrative: Patient is a 63-year-old female history of migraine headache recently diagnosed with kidneys stones and cut her caffeine intake. She is had a migraine headache for the last 4 days she is had nausea vomiting. Progressively gotten worse. No numbness tingling or weakness. She had significant pressure behind her left eye. She has since received a migraine cocktail in his overall feeling better and would like to go home. She is not on any antiplatelet or anticoagulation medication. She reports that she cut her caffeine intake cold turkey after getting kidney stones. She drank a quite large amount of ice tea with an occasional coffee. Related Data Home Medications Medication Instructions Recorded Confirmed acetaminophen 500 mg tablet ##0 07/08/16 (Tylenol Extra Strength) meloxicam 06/13/22 Previous Rx's Medication Instructions Recorded hydrocodone 5 mg-acetaminophen 325 1 tab PO Q4-6H PRN pain #10 tabs 04/09/23 mg tablet ketorolac 10 mg tablet 10 mg PO Q6H PRN pain #14 tabs 04/09/23 ondansetron 4 mg disintegrating 4 mg PO TID-QID PRN nausea and 04/09/23 tablet vomiting #10 tabs tamsulosin 0.4 mg capsule (Flomax) 0.4 mg PO DAILY #7 caps 04/10/23 Allergies Allergy/AdvReac Type Severity Reaction Status Date / Time No Known Allergies Allergy Uncoded 04/10/23 07:15 Review of Systems Review of Systems ROS Unobtainable: All systems reviewed & are unremarkable except as noted in HPI and below Patient History Social History household members: spouse Smoking Status: Current every day smoker alcohol intake: never Smoking Status: Current every day smoker Substance Use Type: does not use Exam Initial Vital Signs Initial Vital Signs: Vital Signs Temperature 98.4 F 04/14/23 20:38 Pulse Rate 89 04/14/23 20:38 Respiratory Rate 16 04/14/23 20:38 Blood Pressure 174/85 H 04/14/23 20:38 Pulse Oximetry 99 04/14/23 20:38 Oxygen Delivery Method Room Air 04/14/23 20:38 GENERAL: Alert pleasant 63-year-old female and in no acute distress. HEENT: Head atraumatic,EOMI, pupils reactive, face symmetric, moist mucous membranes CARDIOVASCULAR: Regular rate and rhythm without murmurs, rubs or gallops. RESPIRATORY: Breath sounds equal bilaterally, no wheezes rales or rhonchi. ABDOMEN: Soft, nontender. Normoactive bowel sounds all 4 quadrants. No guarding or rebound. EXTREMITIES: Normal range of motion, no clubbing or edema. Neurovascularly intact NEUROLOGICAL: Alert and oriented x4.Normal gait and speech. Cranial nerves II through XII grossly intact. Direct Marketing Manager strength equal bilaterally SKIN: Warm, dry, no laceration, no petechiae, no rashes or lesions. Course Orders Ordered: Discontinued Medications Diphenhydramine HCl (Diphenhydramine 50 Mg/Ml Vial) 25 mg IV NOW ONE Stop: 04/14/23 21:21 Last Admin: 04/14/23 21:30 Dose: 25 mg Documented By: NEVIN Sodium Chloride (Normal Saline 0.9%) 1,000 mls @ 1,000 mls/hr IV BOLUS ONE Stop: 04/14/23 22:19 Last Infusion: 04/14/23 21:59 Dose: 0 mls/hr Documented By: Admin: 04/14/23 21:31 Dose: 1,000 mls/hr Documented By: NEVIN Ketorolac Tromethamine (Ketorolac 30 Mg/Ml Vial) 15 mg IV NOW ONE Stop: 04/14/23 21:21 Last Admin: 04/14/23 21:30 Dose: 15 mg Documented By: NEVIN Metoclopramide HCl (Metoclopramide 10 Mg/2 Ml Inj) 10 mg IV NOW ONE Stop: 04/14/23 21:22 Last Admin: 04/14/23 21:30 Dose: 10 mg Documented By: NEVIN Prochlorperazine (Prochlorperazine 10 Mg/2 Ml Vial) 10 mg IV NOW ONE Stop: 04/14/23 21:21 Last Admin: 04/14/23 21:32 Dose: Not Given Documented By: NEVIN Vital Signs Vital signs: Vital Signs - 8 hr 04/14/23 20:38 04/14/23 22:06 Temperature 98.4 F Pulse Rate 89 65 Respiratory Rate 16 18 Blood Pressure 174/85 H 163/73 H Pulse Oximetry 99 98 Oxygen Delivery Method Room Air Room Air MDM - Headache MDM Narrative Medical decision making narrative: Patient 63-year-old female history of migraine headaches started having headaches since she cut her caffeine. She is had a headache behind her left eye for the last 4 days. Symptoms completely resolved with migraine cocktail. She is afebrile no neck pain no evidence meningitis. This is typical for her. We discussed bringing back some caffeine and cutting down slowly. He has no focal deficits or need for imaging. Discharge Plan Departure Patient Disposition: Home Clinical Impression: Migraine Instructions: DI for Migraine Activity Restrictions/Additional Instructions: *You have been diagnosed with migraine headache *What to do: At this time I am glad you feel better go home and rest *Continue to take medications as directed *Follow up with your primary care provider in 2-3 days or call [phone] *Return to ER if you should have increasing pain persistent vomiting numbness tingling weakness [or] any new, worsening or concerning symptoms Prescriptions: No Action acetaminophen [Tylenol Extra Strength] 500 MG tablet Qty: 0 hydrocodone-acetaminophen 5-325 mg tablet 1 tab PO Q4-6H PRN (Reason: pain) Qty: 10 0RF ketorolac 10 mg tablet 10 mg PO Q6H PRN (Reason: pain) Qty: 14 0RF ondansetron 4 mg tablet,disintegrating 4 mg PO TID-QID PRN (Reason: nausea and vomiting) Qty: 10 0RF tamsulosin [Flomax] 0.4 mg capsule 0.4 mg PO DAILY Qty: 7 0RF meloxicam Referrals: Pretty Bass MD [Primary Care Provider] - Stand Alone Forms: Patient Portal/API
== END 2023-04-14 22:17 | disposition home or self-care (01) ==
PROVIDERS: Emergency Provider Emergency Medicine; PCP Family Medicine
DX: G43.909 Migraine, unspecified, not intractable, without status migrainosus (principal); R11.2 Nausea with vomiting, unspecified
CPT/HCPCS: 96374; 96375; 99283; 99284; J1200; J1885; J2765

== ENCOUNTER 2024-04-01 19:52 | Emergency (ER) | payer OTHER, SELFPAY ==
[2024-04-01] VITALS (10 sets, daily range): BP systolic 151–169; BP diastolic 76–96; PULSE 64–79; RESP 17; TEMP 36.4; O2SAT 93–99; BMI 24.7
[2024-04-01] MEDS: KETOROLAC 30 MG/ML VIAL 15 MG IV (20:21)
--- NOTE | 2024-04-01 20:21 | DI.CT.S_ITS ---
PROCEDURE: CT KIDNEY URETER BLADDER (KUB) INDICATIONS: kidney stone TECHNIQUE: Axial sections were acquired from the lung bases to the pubic symphysis. Coronal and sagittal reformats were performed. For radiation dose reduction, the following was used: automated exposure control, adjustment of mA and/or kV according to patient size. COMPARISON: [facility], CT, CT KIDNEY URETER BLADDER (KUB), 04/09/2023, 21:34. FINDINGS: Image quality: Diagnostic Lower chest: Basal atelectasis. Nonspecific distal esophageal wall thickening and possible fundal location changes. Liver: Solid organs are not well evaluated without IV contrast. No contour deforming mass Gallbladder and biliary system: Unremarkable, nondilated Pancreas: No ductal dilation Spleen: Nonenlarged Adrenals: 1.3 cm left adrenal adenoma again seen. Kidneys: Right renal cyst. No solid or complicated component on limited noncontrast evaluation. No obstructing calcified stone identified. No hydronephrosis. Punctate right nonobstructing calculus. Vessels and lymph nodes: No abdominal aortic aneurysm. Atherosclerotic calcifications are present. No pathologic lymph nodes by size criteria. Bowel and peritoneum: No evidence of small bowel obstruction. No pathologic ascites. There are colonic diverticula. The appendix is nondilated. Body wall: Unremarkable. Tiny fat containing umbilical hernia Pelvis: Bladder is under distended and unremarkable. The uterus is absent Bones: No acute or suspicious osseous finding. IMPRESSION: No obstructing calcified stone. No hydronephrosis. Punctate nonobstructing right mid region calyceal calculus. 1.3 cm left adrenal adenoma again seen, correlate with laboratory testing to determine functional status. Other findings above. Dictated by: Chalino Leos M.D. on 04/01/2024 at 20:50 Approved by: Chalino Leos M.D. on 04/01/2024 at 20:54
[2024-04-01] MEDS: ONDANSETRON 4 MG/2 ML INJ IV (20:22)
[2024-04-01 20:28] LABS: Add Manual Diff / Slide Review NO; Basophils Absolute Auto 100 /uL (0-100); Basophils Percent Auto 0.6 % (0-2); Eosinophils Absolute Auto 300 /uL (0-450); Eosinophils Percent Auto 3.1 % (2-4); Hemoglobin 13.9 g/dL (12.0-16.0); Lymphocytes Absolute Auto 2700 /uL (1100-4500); Lymphocytes Percent Auto 32.4 % (25-40); Mean Corpuscular HGB Conc 33.8 % (30-36); Mean Corpuscular Volume 88.9 fL (80-100); Monocytes Absolute Auto 500 /uL (0-900); Monocytes Percent Auto 6.4 % (3-14); Neutrophils Absolute Auto 4800 /uL (1500-7000); Neutrophils Percent Auto 57.5 % (50-75); Platelet Count 230 X10^3/uL (150-400); Red Blood Cell Count 4.61 X10^6/uL (4.0-5.2); Red Cell Distribution Width 14.2 % (11.6-14.8); White Blood Cell Count 8.3 X10^3/uL (4.5-11.0)
[2024-04-01] MEDS: SODIUM CHLORIDE 0.9% 1,000 ML 1000 ML IV (20:40)
[2024-04-01 20:42] LABS: Alanine Aminotransferase 16 IU/L (<35); Albumin 4.3 g/dL (3.5-5.0); Albumin Globulin Ratio 1.3 (1.0-2.8); Alkaline Phosphatase 102 U/L (38-126); Aspartate Aminotransferase 25 IU/L (14-36); BUN Creatinine Ratio 23.8 (6-22); Bilirubin Total 0.4 mg/dL (0.2-1.3); Blood Urea Nitrogen 19 mg/dL (7-17); Calcium 9.4 mg/dL (8.4-10.2); Carbon Dioxide 25 mmol/L (22-32); Chloride 108 mmol/L (98-107); Estimated Glomerular Filt Rate > 60 mL/min (>60); Globulin 3.3 g/dL (1.7-4.1); Glucose 98 mg/dL (80-110); HEMOLYSIS 19 (0-50); Potassium 4.1 mmol/L (3.4-5.1); Sodium 139 mmol/L (137-145); Total Protein 7.6 g/dL (6.3-8.2)
[2024-04-01 20:53] LABS: Bacteria Urine None Seen; RBC Urine None Seen (0-5/HPF); Squamous Epithelial Cell Urine None Seen (0-5/HPF); Urine Volume 10mL (spun); WBC Urine 0-1/HPF (0-5/HPF)
[2024-04-01 20:54] LABS: Culture Indicated Urine Cult Not Indicated
[2024-04-01] MEDS: HYDROMORPHONE 0.5 MG INJ IV (22:58)
[2024-04-02] VITALS: BP 144/71; PULSE 63; O2SAT 94
[2024-04-02 00:30] VITALS: BP 142/71; PULSE 61; O2SAT 96
--- NOTE | 2024-04-02 00:46 | ED.BACK ---
HPI - Back Pain/Injury General Chief Complaint: Back Pain/Injury Stated Complaint: thinks passing kidney stone Time Seen by Provider: 04/01/24 21:05 Source: patient History of Present Illness HPI Narrative: 63-year-old woman with a history of prior kidney stones presents complaining of left flank pain has been getting progressively worse over the last 24 hours. No fevers, cough, chills, no dysuria or hematuria. States that it feels very similar to a year ago when she was passing a kidney stone. Related Data Home Medications Medication Instructions Recorded Confirmed acetaminophen 500 mg tablet ##0 07/08/16 (Tylenol Extra Strength) meloxicam 06/13/22 Previous Rx's Medication Instructions Recorded hydrocodone 5 mg-acetaminophen 325 1 tab PO Q4-6H PRN pain #10 tabs 04/09/23 mg tablet ketorolac 10 mg tablet 10 mg PO Q6H PRN pain #14 tabs 04/09/23 ondansetron 4 mg disintegrating 4 mg PO TID-QID PRN nausea and 04/09/23 tablet vomiting #10 tabs tamsulosin 0.4 mg capsule (Flomax) 0.4 mg PO DAILY #7 caps 04/10/23 oxycodone-acetaminophen 5 mg-325 1 tab PO Q6H PRN pain #14 tabs 04/02/24 mg tablet valacyclovir 1 gram tablet 1,000 mg PO TID #21 tabs 04/02/24 Allergies Allergy/AdvReac Type Severity Reaction Status Date / Time No Known Allergies Allergy Uncoded 04/10/23 07:15 Review of Systems Review of Systems Narrative: Pertinent positive and negative findings as per HPI Patient History Medical History (Updated 04/02/24 @ 01:20 by Fatemeh Chase MD) Shingles Social History household members: spouse Smoking Status: Current every day smoker alcohol intake: never Smoking Status: Current every day smoker Substance Use Type: does not use Exam Initial Vital Signs Initial Vital Signs: Vital Signs Temperature 97.6 F 04/01/24 20:07 Pulse Rate 79 04/01/24 20:07 Respiratory Rate 17 04/01/24 20:07 Blood Pressure 163/96 H 04/01/24 20:07 Pulse Oximetry 99 04/01/24 20:07 Oxygen Delivery Method Room Air 04/01/24 20:07 General: Slightly pale, significant left flank pain Able to give a complete and coherent history. Well-nourished well-developed HEENT: Moist mucous membranes, normal sclera with reactive pupils, Respiratory: Lungs are clear to auscultation, no wheezing no rales no rhonchi. Full and symmetrical air movement Cardiac: Regular rate and rhythm no murmurs no bruits Abdomen: Soft, nontender, good bowel tones, no flank pain Skin: Warm and dry, developing vesicular rash left side T9 distribution Neurologic: Grossly neurologically intact with no obvious asymmetries or abnormalities Extremities: No trauma, well perfused Psych: Cooperative, appropriate insight and affect Course Orders Ordered: ED Orders 04/01/24 20:20 Complete Blood Count AUTO DIFF Stat Comprehensive Metabolic Panel Stat Urine Microscopic Stat 04/01/24 20:21 CT kidney ureter bladder (KUB) Stat Discontinued Medications Hydromorphone HCl (Hydromorphone 0.5 Mg Inj) 0.5 mg IV NOW ONE Stop: 04/01/24 22:43 Last Admin: 04/01/24 22:58 Dose: 0.5 mg Documented By: LUIS Sodium Chloride (Normal Saline 0.9%) 1,000 mls @ 1,000 mls/hr IV BOLUS ONE Stop: 04/01/24 21:26 Last Infusion: 04/01/24 21:19 Dose: Infused Documented By: Admin: 04/01/24 20:40 Dose: 1,000 mls/hr Documented By: LUIS Ketorolac Tromethamine (Ketorolac 30 Mg/Ml Vial) 15 mg IV NOW ONE Stop: 04/01/24 20:14 Last Admin: 04/01/24 20:21 Dose: 15 mg Documented By: ALBA Ondansetron HCl (Ondansetron 4 Mg/2 Ml Inj) 4 mg IV NOW ONE Stop: 04/01/24 20:14 Last Admin: 04/01/24 20:22 Dose: 4 mg Documented By: ALBA Vital Signs Vital signs: Vital Signs - 8 hr 04/01/24 20:07 04/01/24 20:34 04/01/24 20:34 Temperature 97.6 F Pulse Rate 79 67 Respiratory Rate 17 Blood Pressure 163/96 H 169/92 H Pulse Oximetry 99 93 Oxygen Delivery Method Room Air Room Air 04/01/24 21:00 04/01/24 21:01 04/01/24 21:01 Temperature Pulse Rate 68 68 Respiratory Rate Blood Pressure 167/85 H Pulse Oximetry 96 96 Oxygen Delivery Method 04/01/24 21:30 04/01/24 21:30 04/01/24 22:00 Temperature Pulse Rate 69 72 Respiratory Rate Blood Pressure 162/83 H Pulse Oximetry 97 97 Oxygen Delivery Method 04/01/24 22:30 04/01/24 22:59 04/01/24 22:59 Temperature Pulse Rate 65 69 Respiratory Rate Blood Pressure 165/76 H Pulse Oximetry 98 98 Oxygen Delivery Method 04/01/24 23:00 Temperature Pulse Rate 67 Respiratory Rate Blood Pressure Pulse Oximetry 99 Oxygen Delivery Method Room Air MDM - Back Pain/Injury Lab Data 04/01/24 20:20 04/01/24 20:20 Labs: Lab Results 04/01/24 Range/Units 20:20 WBC 8.3 (4.5-11.0) X10^3/uL RBC 4.61 (4.0-5.2) X10^6/uL Hgb 13.9 (12.0-16.0) g/dL Hct 41.0 (36-46) % MCV 88.9 (80-100) fL MCH 30.0 (26-34) PG MCHC 33.8 (30-36) % RDW 14.2 (11.6-14.8) % Plt Count 230 (150-400) X10^3/uL Neut % (Auto) 57.5 (50-75) % Lymph % (Auto) 32.4 (25-40) % [place] % (Auto) 6.4 (3-14) % Eos % (Auto) 3.1 (2-4) % Baso % (Auto) 0.6 (0-2) % Neut # (Auto) 4800 (5357-7302) /uL Lymph # (Auto) 2700 (4869-6262) /uL [place] # (Auto) 500 (0-900) /uL Eos # (Auto) 300 (0-450) /uL Baso # (Auto) 100 (0-100) /uL Sodium 139 (137-145) mmol/L Potassium 4.1 (3.4-5.1) mmol/L Chloride 108 H (98-107) mmol/L Carbon Dioxide 25 (22-32) mmol/L BUN 19 H (7-17) mg/dL Creatinine 0.80 (0.52-1.04) mg/dL Estimated GFR > 60 (>60) mL/min BUN/Creatinine Ratio 23.8 H (6-22) Glucose 98 (80-110) mg/dL Calcium 9.4 (8.4-10.2) mg/dL Total Bilirubin 0.4 (0.2-1.3) mg/dL AST 25 (14-36) IU/L ALT 16 (<35) IU/L Alkaline Phosphatase 102 (38-126) U/L Total Protein 7.6 (6.3-8.2) g/dL Albumin 4.3 (3.5-5.0) g/dL Globulin 3.3 (1.7-4.1) g/dL Albumin/Globulin Ratio 1.3 (1.0-2.8) Urine RBC None seen (0-5/HPF) Urine WBC 0-1/hpf (0-5/HPF) Ur Squamous Epith Cells None seen (0-5/HPF) Urine Bacteria None seen (None) Ur Culture Indicated? Cult not indicated Vol Urine Centrifuged 10ml (spun) Urine Dip Bedside Urine Glucose Negative Bedside Urine Bilirubin - Negative Bedside Urine Ketone - Negative Urine Specific [place] 1.02 Bedside Urine Occult Blood +/- Bedside Urine pH 6 Bedside Urine Protein - Negative Bedside Urine Urobilinogen - Negative Bedside Urine Nitrite - Negative Bedside Urine Leukocytes - Negative Esterase Imaging Data CT scan - abdomen/pelvis: Radiologist's Impression: PROCEDURE: CT KIDNEY URETER BLADDER (KUB) INDICATIONS: kidney stone TECHNIQUE: Axial sections were acquired from the lung bases to the pubic symphysis. Coronal and sagittal reformats were performed. For radiation dose reduction, the following was used: automated exposure control, adjustment of mA and/or kV according to patient size. COMPARISON: [facility], CT, CT KIDNEY URETER BLADDER (KUB), 04/09/2023, 21:34. FINDINGS: Image quality: Diagnostic Lower chest: Basal atelectasis. Nonspecific distal esophageal wall thickening and possible fundal location changes. Liver: Solid organs are not well evaluated without IV contrast. No contour deforming mass Gallbladder and biliary system: Unremarkable, nondilated Pancreas: No ductal dilation Spleen: Nonenlarged Adrenals: 1.3 cm left adrenal adenoma again seen. Kidneys: Right renal cyst. No solid or complicated component on limited noncontrast evaluation. No obstructing calcified stone identified. No hydronephrosis. Punctate right nonobstructing calculus. Vessels and lymph nodes: No abdominal aortic aneurysm. Atherosclerotic calcifications are present. No pathologic lymph nodes by size criteria. Bowel and peritoneum: No evidence of small bowel obstruction. No pathologic ascites. There are colonic diverticula. The appendix is nondilated. Body wall: Unremarkable. Tiny fat containing umbilical hernia Pelvis: Bladder is under distended and unremarkable. The uterus is absent Bones: No acute or suspicious osseous finding. IMPRESSION: No obstructing calcified stone. No hydronephrosis. Punctate nonobstructing right mid region calyceal calculus. 1.3 cm left adrenal adenoma again seen, correlate with laboratory testing to determine functional status. Other findings above. Dictated by: Chalino Leos M.D. on 04/01/2024 at 20:50 MDM Narrative Medical decision making narrative: CC: Left flank pain Complicating co-morbidities: History of kidney stones Data collected from: patient Differential considered: Kidney stone, pyelonephritis, shingles, bowel obstruction, constipation Exam documented above, pertinent findings include: Patient appears moderately uncomfortable. Is beginning to develop a vesicular rash left-sided T9 distribution Lab Test results independently reviewed as above. Pertinent findings: CBC is unremarkable Chemistries are reassuring Imaging studies independently reviewed: CT scan of the abdomen is benign. No hydronephrosis or suggestion of kidney stones Treatments: Pain medication, we will be started on valacyclovir Discussion: 63-year-old woman with 24 hours of left flank pain described as itchy now as a burning deep pain feels like prior kidney stone. On further examination she is beginning to develop a vesicular rash which she had not noticed this morning. Prodromal zoster certainly explains pain she is experiencing. Reviewed with her negative labs and reassuring CT scan no evidence for kidney stones. Discussed treatment for shingles and reassured her that fortunately we are able to begin Valacyclovir early in the course and hopefully she will have minimal complications. Discussed use of pain medications, voiding constipation and anticipated course of recovery. At this point there was no indication for additional imaging studies, blood work or hospitalization. She is safe for discharge Discharge Plan Departure Patient Disposition: Home Clinical Impression: Herpes zoster Qualifiers: Herpes zoster complications: without complications Qualified Code(s): B02.9 - Zoster without complications Instructions: DI for Shingles Activity Restrictions/Additional Instructions: Thank you for coming in today There was no evidence of bacterial infection, kidney infection or kidney stone. On physical exam, that area that was itchy and burning is now developing a rash very consistent with shingles. It is not uncommon to have pain for a couple of days before the rash develops. Using 400 mg of ibuprofen (2 [id number] pills) and 1 Tylenol every 6 hours can be very helpful in controlling pain. For severe pain you can use 400 mg of ibuprofen and 1 Percocet. Percocet is a narcotic and will cause constipation. Please make sure you are using a stool softener To try to prevent the shingles from becoming worse and minimize the risk for chronic pain after it heals, I have given you a prescription All prescriptions have been electronically transmitted to [facility] ([facility] in [place]. If you find that you are getting worse or develop any new symptoms, please feel free to return to the emergency department for further evaluation. Prescriptions: New valacyclovir 1 gram tablet 1,000 mg PO TID Qty: 21 0RF oxycodone-acetaminophen 5-325 mg tablet 1 tab PO Q6H PRN (Reason: pain) Qty: 14 0RF No Action acetaminophen [Tylenol Extra Strength] 500 MG tablet Qty: 0 hydrocodone-acetaminophen 5-325 mg tablet 1 tab PO Q4-6H PRN (Reason: pain) Qty: 10 0RF ketorolac 10 mg tablet 10 mg PO Q6H PRN (Reason: pain) Qty: 14 0RF ondansetron 4 mg tablet,disintegrating 4 mg PO TID-QID PRN (Reason: nausea and vomiting) Qty: 10 0RF tamsulosin [Flomax] 0.4 mg capsule 0.4 mg PO DAILY Qty: 7 0RF meloxicam Referrals: Pretty Bass MD [Primary Care Provider] - Stand Alone Forms: Patient Portal/API
[2024-04-02 01:00] VITALS: BP 149/107; PULSE 64; RESP 18; O2SAT 97
[2024-04-02] MEDS: OXYCODONE/APAP 5/325 PREPACK 1 BOTTLE MISC (01:14)
[2024-04-02] MEDS: OXYCODONE/ACETAMINOPHEN 5/325 TABLET 1 TAB PO (01:14)
== END 2024-04-02 01:29 | disposition home or self-care (01) ==
PROVIDERS: Emergency Provider Emergency Medicine; PCP Family Medicine
DX: B02.9 Zoster without complications (principal); Z87.442 Personal history of urinary calculi
CPT/HCPCS: 36415; 74176; 80053; 81003; 81015; 85025; 96361; 96374; 96375; 99284; J1170; J1885; J2405

== ENCOUNTER 2024-09-02 00:40 | Emergency (ER) | payer OTHER, SELFPAY ==
[2024-09-02 00:48] VITALS: BP 186/90; PULSE 80; RESP 16; TEMP 37; O2SAT 98; BMI 24.7
[2024-09-02 03:32] VITALS: BP 173/87; PULSE 63; RESP 18; O2SAT 97
--- NOTE | 2024-09-02 03:36 | PC.NURSE ---
Pt also reports of vertigo symptoms worse with movement of head front to back. reports causes room to spin increasing nausea.
[2024-09-02] MEDS: MECLIZINE HCL 12.5 MG TABLET 50 MG PO (03:47)
[2024-09-02 04:00] VITALS: BP 161/91; PULSE 65; O2SAT 99
[2024-09-02 04:30] VITALS: BP 174/78; PULSE 57; O2SAT 98
[2024-09-02 05:00] VITALS: BP 187/92; PULSE 59; RESP 18; O2SAT 97
--- NOTE | 2024-09-02 05:11 | ED.GENADULT ---
HPI - General Adult General Chief complaint: Ear Stated complaint: vertigo and ear pain Time Seen by Provider: 09/02/24 03:41 Source: patient Mode of arrival: Ambulatory History of Present Illness HPI narrative: 64-year-old female with recent right nontraumatic ear pain, no drainage, and sensation of dizziness and spinning for the last couple of days. No known trauma. No neck pain or photophobia. No falling, but somewhat unsteady on her feet if she moves quickly or turns her head. Related Data Home Medications Medication Instructions Recorded Confirmed acetaminophen 500 mg tablet ##0 07/08/16 (Tylenol Extra Strength) meloxicam 06/13/22 Previous Rx's Medication Instructions Recorded hydrocodone 5 mg-acetaminophen 325 1 tab PO Q4-6H PRN pain #10 tabs 04/09/23 mg tablet ketorolac 10 mg tablet 10 mg PO Q6H PRN pain #14 tabs 04/09/23 ondansetron 4 mg disintegrating 4 mg PO TID-QID PRN nausea and 04/09/23 tablet vomiting #10 tabs tamsulosin 0.4 mg capsule (Flomax) 0.4 mg PO DAILY #7 caps 04/10/23 oxycodone-acetaminophen 5 mg-325 1 tab PO Q6H PRN pain #14 tabs 04/02/24 mg tablet valacyclovir 1 gram tablet 1,000 mg PO TID #21 tabs 04/02/24 amoxicillin 875 mg tablet 875 mg PO BID dental infection 10 09/02/24 days #20 tabs meclizine 25 mg tablet 25 mg PO TID 7 days #21 tabs 09/02/24 Allergies Allergy/AdvReac Type Severity Reaction Status Date / Time No Known Allergies Allergy Uncoded 04/10/23 07:15 Patient History Medical History (Updated 09/02/24 @ 05:26 by Jamie Batres MD) Shingles Social History household members: spouse Smoking Status: Current every day smoker alcohol intake: never Smoking Status: Current every day smoker Exam Narrative Exam Narrative: GENERAL: Well-developed patient, in mild distress. HEAD: Atraumatic. Normocephalic. EYES: Pupils equal round and reactive. Extraocular motions intact. No scleral icterus. No injection or drainage. ENT: Right TM with bulging dull parents, loss of landmarks, EAC normal. Left TM with perhaps clear fluid behind, normal landmarks however, no dullness, EAC normal. NECK: Trachea midline. Non tender CARDIOVASCULAR: Regular rate and rhythm without murmurs, gallops, or rubs. RESPIRATORY: Clear to auscultation. Breath sounds equal bilaterally. No wheezes, rales, or rhonchi. GASTROINTESTINAL: Abdomen soft, non-tender, nondistended. EXTREMITIES: No edema or joint tenderness. BACK: Nontender without deformity or crepitance. No flank tenderness. NEURO: AOx3. Motor functions grossly nonfocal. Finger to nose testing brisk and reassuring bilateral. SKIN: No rash or erythema of visible areas Initial Vital Signs Initial Vital Signs: Vital Signs Temperature 98.6 F 09/02/24 00:48 Pulse Rate 80 09/02/24 00:48 Respiratory Rate 16 09/02/24 00:48 Blood Pressure 186/90 H 09/02/24 00:48 Pulse Oximetry 98 09/02/24 00:48 Oxygen Delivery Method Room Air 09/02/24 00:48 Course Orders Ordered: Discontinued Medications Amoxicillin (Amoxicillin 250 Mg Capsule) 1,000 mg PO NOW ONE Stop: 09/02/24 05:19 Last Admin: 09/02/24 05:27 Dose: 1,000 mg Documented By: Meclizine HCl (Meclizine Hcl 12.5 Mg Tablet) 50 mg PO NOW ONE Stop: 09/02/24 03:42 Last Admin: 09/02/24 03:47 Dose: 50 mg Documented By: HNG Vital Signs Vital signs: Vital Signs - 8 hr 09/02/24 00:48 09/02/24 03:32 09/02/24 03:32 Temperature 98.6 F Pulse Rate 80 63 Respiratory Rate 16 18 Blood Pressure 186/90 H 173/87 H Pulse Oximetry 98 97 Oxygen Delivery Method Room Air 09/02/24 04:00 09/02/24 04:00 09/02/24 04:30 Temperature Pulse Rate 65 57 L Respiratory Rate Blood Pressure 161/91 H Pulse Oximetry 99 98 Oxygen Delivery Method Room Air 09/02/24 04:30 09/02/24 05:00 09/02/24 05:00 Temperature Pulse Rate 59 L Respiratory Rate 18 Blood Pressure 174/78 H 187/92 H Pulse Oximetry 97 Oxygen Delivery Method Medical Decision Making MDM Narrative Medical decision making narrative: 64-year-old female with dizziness and right ear pain. On examination has right suppurative acute otitis media appearance. Normal range of motion neck, though there is some dizziness with head and body movements changes of positions. Oral meclizine given, vertigo symptoms much improved. We will give 1st dose antibiotic amoxicillin in the emergency department, prescription sent to her further course to her pharmacy. Discharged home with family. Return precautions discussed. Advised not to drive or operate machinery until vertigo resolved. Return precautions discussed. Home with family. Discharge Plan Departure Patient Disposition: Home Clinical Impression: Otitis media, Vertigo Activity Restrictions/Additional Instructions: Ms Condon, Recent nontraumatic right ear pain and dizziness vertigo symptoms. Right eardrum dull with opaque appearance and loss of landmarks, consistent with middle ear infection on that side. There is some clear fluid appearance left eardrum but no dullness and landmarks are preserved. No fluid or pus in either ear canal. Reassuring neurological examination, though you have some symptoms with head and body movements by report, consistent with irritation inflammation of the middle ear system likely due to infection. Seems less likely for cerebellar stroke at this time. Trial of antibiotics. Trial of meclizine antihistamine. You had oral dose of meclizine that seems to be improving your symptoms some. Prescription sent to your pharmacy. Take medications as directed. Recheck with your regular doctor if not improving in the next 2-3 days, or if symptoms not resolved within the next week. Return earlier to this/nearest emergency department for any change worsening symptoms or any concerns prior. Prescriptions: New amoxicillin 875 mg tablet 875 mg PO BID 10 Days Qty: 20 0RF meclizine 25 mg tablet 25 mg PO TID 7 Days Qty: 21 0RF No Action acetaminophen [Tylenol Extra Strength] 500 MG tablet Qty: 0 hydrocodone-acetaminophen 5-325 mg tablet 1 tab PO Q4-6H PRN (Reason: pain) Qty: 10 0RF ketorolac 10 mg tablet 10 mg PO Q6H PRN (Reason: pain) Qty: 14 0RF ondansetron 4 mg tablet,disintegrating 4 mg PO TID-QID PRN (Reason: nausea and vomiting) Qty: 10 0RF tamsulosin [Flomax] 0.4 mg capsule 0.4 mg PO DAILY Qty: 7 0RF valacyclovir 1 gram tablet 1,000 mg PO TID Qty: 21 0RF oxycodone-acetaminophen 5-325 mg tablet 1 tab PO Q6H PRN (Reason: pain) Qty: 14 0RF meloxicam Referrals: Pretty Bass MD [Primary Care Provider] - Stand Alone Forms: Patient Portal/API/Survey
[2024-09-02] MEDS: AMOXICILLIN 250 MG CAPSULE 1000 MG PO (05:27)
[2024-09-02 05:36] VITALS: BP 175/84; PULSE 62; RESP 16; TEMP 36.9; O2SAT 95
== END 2024-09-02 05:37 | disposition home or self-care (01) ==
PROVIDERS: Emergency Provider Emergency Medicine; PCP Family Medicine
DX: H66.001 Acute suppurative otitis media without spontaneous rupture of ear drum, right ear (principal); R42 Dizziness and giddiness; F17.200 Nicotine dependence, unspecified, uncomplicated
CPT/HCPCS: 99283